=== PATIENT | female | born 1975 | race Caucasian/White ===

== ENCOUNTER 2023-08-27 11:18 | Outpatient (CLI) | payer BC ==
[2023-08-27 12:48] LABS: #Basophils 0.04 10x3/uL (0.0-0.2); #Eosinphils 0.25 10x3/uL (0.0-0.5); #Monocytes 0.64 10x3/uL (0.0-1.1); #Neutrophils 4.49 10x3/uL (1.5-8.4); %Basophils 0.6 % (0.0-2.0); %Eosinophils 3.5 % (0.0-6.0); %Lymphocytes 23.2 % (18.0-47.0); %Neutrophils 63.4 % (40.0-75.0); Hematocrit 40.9 % (34.9-44.5); Hemoglobin 14.4 g/dL (12.0-15.5); Mean Corpuscular HGB CONC 35.2 g/dL (32.0-36.0); Mean Corpuscular Hemoglobin 32.5 pg (27.0-33.0); Mean Corpuscular Volume 92.3 fL (81.6-98.3); Mean Platelet Volume 9.2 fL (7.4-10.4); Platelet Count 329 10x3/uL (150-450); RBC Distribution Width 11.6 % (11.5-14.5); Red Blood Cell (RBC) Count 4.43 10x6/uL (3.90-5.03); White Blood Cell (WBC) Count 7.1 10x3/uL (3.5-10.5)
== END 2023-08-27 11:19 | disposition home or self-care (01) ==
LOC: LABBT 11:18
PROVIDERS: ATTEND Orthopaedic Surgery Hand Surgery
DX: Z01.812 Encounter for preprocedural laboratory examination (principal); G56.03 Carpal tunnel syndrome, bilateral upper limbs
CPT/HCPCS: 85025

== ENCOUNTER 2024-01-06 13:00 | Outpatient (CLI) | payer BC ==
[2024-01-06 13:47] LABS: #Basophils 0.07 10x3/uL (0.0-0.2); %Basophils 0.8 % (0.0-1.0); %Eosinophils 4.6 % (0.0-10.0); %Lymphocytes 28.2 % (21.0-51.0); %Monocytes 9.4 % (0.0-10.0); %Neutrophils 56.5 % (42.0-75.0); Hematocrit 38.1 % (36.0-47.0); Mean Corpuscular HGB CONC 34.1 g/dL (32.0-36.0); Mean Corpuscular Hemoglobin 31.9 pg (27.0-31.0); Mean Corpuscular Volume 93.4 fL (78.0-98.0); Mean Platelet Volume 9.4 fL (7.4-10.4); Platelet Count 309 10x3/uL (130-400); RBC Distribution Width 11.9 % (11.5-14.5); Red Blood Cell (RBC) Count 4.08 mill/uL (4.20-5.40)
== END 2024-01-06 13:01 | disposition home or self-care (01) ==
LOC: LABBT 13:00
PROVIDERS: ATTEND Orthopaedic Surgery Hand Surgery
DX: Z01.818 Encounter for other preprocedural examination (principal); G56.03 Carpal tunnel syndrome, bilateral upper limbs
CPT/HCPCS: 85025; 93005; 93010

== ENCOUNTER 2024-01-12 05:36 | Day surgery (SDC) | payer BC ==
[2024-01-06 13:15] VITALS: BMI 26.6
[2024-01-12] MEDS ORDERED: Bupivacaine PF 0.5% 30 ML VIAL ONE (06:27)
[2024-01-12] MEDS ORDERED: Bacitracin Zinc Ointment 30 gm TUBE ONE (06:27)
[2024-01-12] MEDS ORDERED: PROPOFOL 20 ML ONE (06:38)
[2024-01-12] MEDS ORDERED: Midazolam HCl 2 mg/2 ml Vial ONE (06:38)
[2024-01-12] MEDS ORDERED: fentaNYL PF 100 MCG/2 ML SYRINGE ONE (06:38)
[2024-01-12] MEDS ORDERED: Lidocaine 2% PF 5 ML VIAL ONE (06:38)
[2024-01-12] MEDS ORDERED: CEFAZOLIN 2 GM VIAL ONE (06:51)
[2024-01-12] MEDS ORDERED: Dexamethasone 4 mg/ml Vial ONE (07:06)
[2024-01-12] MEDS ORDERED: Ondansetron PF 4 MG/2 ML Vial ONE (07:06)
[2024-01-12] MEDS ORDERED: ePHEDrine Sulfate 50 MG/10 ML VIAL ONE (07:17)
[2024-01-12] MEDS ORDERED: Glycopyrrolate 0.2 MG/ML 5 ML SYRINGE ONE (07:26)
[2024-01-12] MEDS ORDERED: fentaNYL 50 mcg/mL 1 mL Vial ONE (08:03)
[2024-01-12] MEDS ORDERED: Morphine 2 MG/ML VIAL ONE (08:35)
== END 2024-01-12 09:36 | disposition home or self-care (01) ==
LOC: SDC 05:36
PROVIDERS: ATTEND Orthopaedic Surgery Hand Surgery
PROC: 01N50ZZ Release Median Nerve, Open Approach (ICD-10-PCS; principal; 2024-01-12)
DX: G56.02 Carpal tunnel syndrome, left upper limb (principal); E03.9 Hypothyroidism, unspecified; F41.9 Anxiety disorder, unspecified; F31.9 Bipolar disorder, unspecified; G40.909 Epilepsy, unspecified, not intractable, without status epilepticus; M19.90 Unspecified osteoarthritis, unspecified site; Z90.49 Acquired absence of other specified parts of digestive tract; Z90.710 Acquired absence of both cervix and uterus; Z91.018 Allergy to other foods; Z79.890 Hormone replacement therapy; Z79.899 Other long term (current) drug therapy
CPT/HCPCS: A6223; J0665; J1100; J2250; J2272; J2405; J2704; J3010